=== PATIENT | male | born 1960 | race African-American/Black ===

== ENCOUNTER 2016-08-31 10:00 | Inpatient (IN) | payer OTHER ==
--- NOTE | ~2016-08-31 | HP ---
Unit #: [id number] #: [id number] Patient: HILL HERNANDEZ [id number] [place] [address] [id number] I MR#: [id number] NAME: HILL HERNANDEZ ROOM: P212 Age: 56 Sex: M Admission Date: 08/31/2016 : 1960 Attending Physician: Wei Mcfadden M.D. Admitting Physician: Wei Mcfadden M.D. Primary Care Physician: Generic Doctor Not In System HISTORY AND PHYSICAL HISTORY OF PRESENT ILLNESS Hill is a 56 year old admitted to [address] [place] [address] because of his polysubstance abuse which includes alcohol and cocaine. PAST MEDICAL HISTORY 1. History of alcohol abuse. 2. History of illicit substance abuse to include cocaine. PAST SURGICAL HISTORY Nothing reported. ALLERGIES No known drug allergies. SOCIAL HISTORY He does not smoke. Drinks a gallon of liquor plus 12 beers on a daily basis. Admits to using cocaine frequently. FAMILY HISTORY Medically noncontributory. REVIEW OF SYSTEMS CONSTITUTIONAL: No fever or chills. HEENT: Denies any sore throat, ear pain or runny nose. CARDIOVASCULAR: Denies chest pain, irregular heart rhythm or palpitations. CHEST: Denies shortness of breath or cough. No hemoptysis. GASTROINTESTINAL: Denies nausea, vomiting, diarrhea or chronic constipation. ENDOCRINE: Denies history of increased thirst or urination. No recent significant weight loss or gain. GENITOURINARY: Denies dysuria, frequency, or hematuria. SKIN: Denies any rashes. HEMATOLOGIC: Denies history of increased bleeding or bruising. MUSCULOSKELETAL: Denies any hot, swollen joints. No generalized muscle pain. NEUROLOGIC: Denies problems with vision or speech. No frequent, severe headaches. No numbness, tingling or weakness in any extremities. Denies loss of bladder or bowel control. CURRENT MEDICATIONS Detox protocol. PHYSICAL EXAMINATION Unit #: [id number] #: [id number] Patient: HILL HERNANDEZ GENERAL: Alert, well-nourished, in no apparent distress. VITAL SIGNS: Blood pressure 116/74, heart rate 98, respirations 16, temperature 98.6. WEIGHT: 243. HEIGHT: 5 feet 9 inches. SKIN: Warm and dry without rash or lesion. HEENT: Normocephalic. TMs not viewed. Oral and nasal passages clear. Conjunctivae clear. PERRLA. EOMs intact. NECK: Supple without lymphadenopathy or thyromegaly. HEART: Regular rate and rhythm without murmur. LUNGS: Clear. ABDOMEN: Soft, nontender. : Not done. EXTREMITIES: No evidence of cyanosis, clubbing or edema. Moves all without focal deficit. NEUROLOGICAL: Grossly within normal limits. Cranial Nerves: II: Visual rey are intact. III, IV AND : Extraocular movements are intact. Pupils are equal, round and reactive to light. V: Facial sensation is grossly normal. VII: Facial movements and expression are normal. VIII: Auditory acuity grossly intact. IX, X: Uvula is midline. Phonation is normal. XI: Patient shrugs shoulders and turns head normally. XII: Tongue protrudes in the midline. Sensory and Motor Function: Sensory and motor sensation is grossly normal. Motor: moves all extremities well. Coordination: Gait is normal. Deep Tendon Reflexes: Intact. IMPRESSION Psychiatric admission. RECOMMENDATIONS PSYCHIATRIC: Per psychiatrist. MEDICAL: See no contraindication to participate in facility's activities. MEDICAL PROGNOSIS Good. MEDICAL CONDITION Stable. Dictated by... Camila Mae P.A.-C. for Radha Abraham/trip TD: 08/31/2016 19:57 JOB #: [id number] Unit #: [id number] #: [id number] Patient: HILL HERNANDEZ HISTORY AND PHYSICAL Page 1 of 1 X Camila Mae HISTORY AND PHYSICAL
--- NOTE | ~2016-08-31 | PA ---
Unit #: [id number] #: [id number] Patient: SHARRON HERNANDEZ [id number] [facility] [address] [place] [address] [id number] I MR#: [id number] NAME: SHARRON HERNANDEZ ROOM: P212 Age: 56 Sex: M Admission Date: 08/31/2016 : 1960 Date of Assessment: Attending Physician: Wei Mcfadden M.D. Admitting Physician: Wei Mcfadden M.D. Primary Care Physician: Reynold Doctor Not In System PSYCHIATRIC ASSESSMENT DATE OF SERVICE 08/31/2016. IDENTIFYING DATA Mr. Hernandez is a 56-year-old single male, who is a resident of [place], [place], and was self-referred to the hospital on voluntary basis. CHIEF COMPLAINT "I'm here for detox." HISTORY OF PRESENT ILLNESS Mr. Hernandez is a 56-year-old male, who was self-referred to the hospital. Upon presentation, stated that he is here for detox. "I am having withdrawals, now I drink alcohol and use cocaine, I feel like stuff is crawling on me." He reports significant withdrawal symptoms with depression, anxiety, irritability, restlessness, but denies any suicidal ideations, intent, or plan and as such, recommendation for inpatient level of care was made. The patient was transferred to us. SUBSTANCE ABUSE HISTORY The patient reports history of alcohol dependence and has been drinking a gallon and 12 beers a day on his own account and reports that he has been using cocaine once a week. He reports alcohol to be his drug of choice. PAST PSYCHIATRIC HISTORY The patient has not had any prior inpatient or outpatient psychiatric treatment. Review of the medical records indicated that currently he is not active in treatment program, is not seeing a psychiatrist, and not taking any psychotropic medications. PAST MEDICAL HISTORY No acute or chronic medical illnesses. ALLERGIES No known medication allergies. CURRENT MEDICATIONS None. PERSONAL AND SOCIAL HISTORY A 56-year-old male, who reports that he is single, unemployed, and essentially homeless and has poor social support system. Unit #: [id number] #: [id number] Patient: SHARRON HERNANDEZ MENTAL STATUS EXAMINATION A middle-aged male, who was casually dressed with fair personal hygiene, appears to be in no acute distress or discomfort. He was awake and alert on interaction with intact orientation to time, place, and person. His mood was anxious and depressed with a congruent affect. His speech was slow and restricted in content. He denies any suicidal or homicidal ideations and also denies any auditory or visual hallucinations. His insight and judgment remain significantly impaired. DIAGNOSTIC IMPRESSION Psychiatric: Alcohol dependence, moderate, in acute withdrawals; cocaine abuse, moderate. Medical: None. Stressors: Moderate psychosocial stressors. TREATMENT PLAN 1. The patient has presented with history of mood disorder and substance abuse. We will need inpatient hospitalization for safety and stabilization. We will start him back on his home medications. We will adjust the medications and monitor response. 2. Supportive therapy was provided to the patient. ESTIMATED LENGTH OF STAY 5 to 7 days. ABILITY TO HELP SELF Limited. WILLINGNESS TO HELP SELF The patient appears to be willing to help self. STRENGTHS 1. Communicative. 2. Cooperative. PROBLEMS 1. Chronic dysphoric symptoms. 2. Chronic chemical dependency. 3. Poor social support system. DISCHARGE CRITERIA This will be contingent upon the patient's ability to show resolution of his depression and anxiety and his ability to stay safe to himself, particularly after discharge from the hospital. Dictated by... Radha Cordova/whitney TD: 09/04/2016 07:19 JOB #: [id number] Unit #: [id number] #: [id number] Patient: SHARRON HERNANDEZ PSYCHIATRIC ASSESSMENT Page 1 of 1 X Mi Barajas MD X PSYCHIATRIC ASSESSMENT
--- NOTE | ~2016-08-31 | PN ---
Unit #: [id number] #: [id number] Patient: SHARRON HERNANDEZ [id number] [facility] [address] [place] [address] [id number] I MR#: [id number] NAME: SHARRON HERNANDEZ ROOM: P212 Age: 56 Sex: M Admission Date: 08/31/2016 : 1960 Attending Physician: Wei Mcfadden M.D. Admitting Physician: Wei Mcfadden M.D. Primary Care Physician: Generic Doctor Not In System [facility] PROGRESS NOTES DATE 09/02/2016 DISCUSSION Mr. Hernandez is a 56-year-old white male who was seen today in cross coverage for Dr. Mcfadden and chart was reviewed and case was discussed with the staff. He has been anxious, withdrawn though has not shown any agitation, irritability and has been cooperative with treatment recommendations and has been taking medications and tolerating them fairly well with no reported side effects. MENTAL STATUS EXAMINATION Middle-aged white male who was casually dressed with fair personal hygiene and appears to be in no acute distress or discomfort. He was awake and alert with intact orientation. His mood was anxious with congruent affect. He denies any suicidal or homicidal ideations. His insight and judgement remains slightly impaired. TREATMENT PLAN Will continue on his current treatment protocol. Will monitor response to medications and make further adjustments as needed. Dictated by... Radha Cordova/trip TD: 09/02/2016 22:17 JOB #: [id number] [facility] PROGRESS NOTES Page 1 of 1 X Mi Barajas MD X PROGRESS NOTE
--- NOTE | ~2016-08-31 | PN ---
Unit #: [id number] #: [id number] Patient: SHARRON HERNANDEZ [id number] [facility] [address] [place] [address] [id number] I MR#: [id number] NAME: SHARRON HERNANDEZ ROOM: P212 Age: 56 Sex: M Admission Date: 08/31/2016 : 1960 Attending Physician: Wei Mcfadden M.D. Admitting Physician: Wei Mcfadden M.D. Primary Care Physician: Generic Doctor Not In System [facility] PROGRESS NOTES DATE 09/03/2016 DISCUSSION Mr. Hernandez is a 56-year-old, white male who was seen today in cross coverage for Dr. Mcfadden and chart was reviewed and case was discussed with the staff. He has been anxious, withdrawn though has not shown any agitation, irritability and has been cooperative with the treatment recommendations. He has been taking the medication and tolerating them fairly well. MENTAL STATUS EXAM Middle-aged white male who was casually dressed with fair personal hygiene, appears to be in no acute distress or discomfort. He was awake and alert with intact orientation. His mood was anxious with congruent affect. He denies any suicidal or homicidal ideation. His insight and judgement remains slightly impaired. TREATMENT PLAN We will continue him on his current treatment protocol. We will monitor his response. Dictated by... Mi Barajas M.D. NILDA/rodrigo TD: 09/05/2016 03:06 JOB #: [id number] [facility] PROGRESS NOTES Page 1 of 1 X Mi Barajas MD X PROGRESS NOTE
--- NOTE | ~2016-08-31 | DS ---
Unit #: [id number] #: [id number] [facility] [id number] [facility] [address] [place] [address] [id number] I MR#: [id number] NAME: SHARRON HERNANDEZ ROOM: P212 Age: 56 Sex: M Admission Date: 08/31/2016 : 1960 Discharge Date: 09/04/2016 Attending Physician: Wei Mcfadden M.D. Primary Care Physician: Generic Doctor Not In System DISCHARGE SUMMARY IDENTIFYING DATA Mr. Hernandez is a 56-year-old, -Romanian male, who is a resident of [place], [place], and was self-referred to the hospital on a voluntary basis. DISCHARGE DIAGNOSES Psychiatric: Alcohol dependence, moderate and acute withdrawals. Alcohol-induced mood disorder. Cocaine abuse, moderate. Medical: Hypertension. Stressors: Moderate psychosocial stressors. HISTORY OF PRESENT ILLNESS Mr. Hernandez is a 56-year-old male, who was self-referred to the hospital. Upon presentation, stated that he is here for detox. "I am having withdrawals, now I drink alcohol and use cocaine, I feel like stuff is crawling on me." He reports significant withdrawal symptoms with depression, anxiety, irritability, restlessness, but denies any suicidal ideations, intent, or plan and as such, recommendation for inpatient level of care was made. The patient was transferred to us. PAST PSYCHIATRIC HISTORY The patient has not had any prior inpatient or outpatient psychiatric treatment. Review of the medical records indicated that currently he is not active in treatment program, is not seeing a psychiatrist, and not taking any psychotropic medications. PAST MEDICAL HISTORY No acute or chronic medical illnesses. HOSPITAL COURSE The patient was admitted to the adult chemical dependency unit at [facility] and was oriented to the hospital environment. Routine p.r.n. medications were initiated, and he was started back on his home medications. Detox protocol was initiated and was closely monitored. He was taking the medications regularly and was tolerating them fairly well and was able to show a decent therapeutic response and was able to come out of the detox without any complications and was willing to continue with treatment on an outpatient basis and as such, it was decided that he will be discharged home. We will continue treatment on an outpatient basis. DISCHARGE MEDICATIONS None. Unit #: [id number] #: [id number] Patient: SHARRON HERNANDEZ DISCHARGE CONDITION Stable. PROGNOSIS Fair. Dictated by... Radha Cordova/whitney TD: 09/04/2016 12:49 JOB #: [id number] DISCHARGE SUMMARY Page 1 of 1 X Mi Barajas MD X DISCHARGE SUMMARY
--- NOTE | ~2016-08-31 | CO ---
Unit #: [id number] #: [id number] Patient: SHARRON HERNANDEZ [id number] [facility] [address] [place] [address] [id number] I MR#: [id number] NAME: SHARRON HERNANDEZ ROOM: [facility] Age: 56 Sex: M Admission Date: 08/31/2016 : 1960 Attending Physician: Wei Mcfadden M.D. Primary Care Physician: Generic Doctor Not In System Requesting Physician: Wei Mcfadden M.D. CONSULTATION REPORT REASON FOR CONSULTATION Patient complains of sore throat. SUBJECTIVE "I don't have a sore throat. I think I have a lymph node swollen in the side of my neck. It is really painful." OBJECTIVE Vital signs within normal limits. No redness, swelling, drainage, tonsillar enlargement, exudate noted to oral pharynx. No lymphadenopathy either anterior or posterior neck. ASSESSMENT Normal exam. PLAN Observation. Dictated by... Laura Logan/rodrigo TD: 09/04/2016 01:52 JOB #: [id number] CONSULTATION REPORT Page 1 of 1 X Miriam Wheeler APR X CONSULTATION REPORT
--- NOTE | ~2016-08-31 | PN ---
Unit #: [id number] #: [id number] Patient: SHARRON HERNANDEZ [id number] [facility] [address] [place] [address] [id number] I MR#: [id number] NAME: SHARRON HERNANDEZ ROOM: P212 Age: 56 Sex: M Admission Date: 08/31/2016 : 1960 Attending Physician: Wei Mcfadden M.D. Admitting Physician: Wei Mcfadden M.D. Primary Care Physician: Generic Doctor Not In System [facility] PROGRESS NOTES DATE OF SERVICE 09/01/2016 DISCUSSION Mr. Hernandez is a 56-year-old white male who was seen today. Chart was reviewed and case was discussed with the staff. He has been anxious, withdrawn, and rather seclusive to himself. Meanwhile, he has been cooperative with the treatment recommendations and has been taking the medications and tolerating them fairly well with no reported side effects. MENTAL STATUS EXAMINATION Middle-aged white male who is casually dressed with fair personal hygiene, appears to be in no acute distress or discomfort. He was awake and alert with intact orientation. His mood is anxious with congruent affect. He denies any suicidal or homicidal ideation. His insight and judgment remain slightly impaired. TREATMENT PLAN 1. We will continue him on his current medications and treatment protocol. We will monitor his response and make further adjustments as needed. 2. We will continue to follow up. Dictated by... Mi Barajas M.D. IAA/bzg TD: 09/02/2016 07:20 JOB #: [id number] [facility] PROGRESS NOTES Page 1 of 1 X Mi Barajas MD PROGRESS NOTE
== END 2016-09-04 12:40 | disposition home or self-care (01) | DRG 897 ==
LOC: P2S 13:02
PROC: HZ2ZZZZ Detoxification Services for Substance Abuse Treatment (ICD-10-PCS; principal; 2016-08-31)
DX: F10.239 Alcohol dependence with withdrawal, unspecified (principal); F14.10 Cocaine abuse, uncomplicated; I10 Essential (primary) hypertension; F10.24 Alcohol dependence with alcohol-induced mood disorder

== ENCOUNTER 2016-10-15 20:50 | Inpatient (IN) | payer OTHER ==
[~2016-10-15] VITALS: Ht 175.3 cm; Wt 72.0 kg
--- NOTE | ~2016-10-15 | CR63 ---
[facility] A Service of [facility] RADIOLOGY TEXT RESULTS PATIENT: SHARRON HERNANDEZ LOCATION: [facility] 324-01 : [birth year] UNIT #: [id number] AGE: [address]: Chinedu Malhotra MD SEX: M ORDER DR: [id number] [facility] [address] [place], [place] [address] [id number] I MR#: [id number] Acc #: [id number] NAME: SHARRON HERNANDEZ : 1960 SEX: M STUDY DATE/TIME: 10/15/2016 21:40 [facility] STUDY DESCRIPTION: CR Chest 2 View Attending Physician: Aissatou Gonzalez M.D. Ordering Physician: Jl Bonner D.O. Primary Care Physician: No Primary Care Physician MEDICAL IMAGING REPORT This report is preliminary unless electronic signature is present EXAM 2-view chest INDICATION Fever for 1 week. Cough and congestion. FINDINGS PA and lateral views of the chest without comparison. Heart and mediastinal contours are normal. There is a right lower lobe pneumonia. No pleural effusion. IMPRESSION Right lower lobe pneumonia. Follow up radiographs are recommended to document resolution and exclude the underlying mass. Dictated by... Erickson Crump M.D. THIS IS AN ELECTRONICALLY VERIFIED REPORT Erickson Crump M.D. at 10/17/2016 10:34 AM KALI/sundar TD: 10/16/2016 08:15 JOB #: [id number] MEDICAL IMAGING REPORT Page 1 of 1 COPY
--- NOTE | ~2016-10-15 | CO ---
Unit #: [id number] #: [id number] Patient: HILL HERNANDEZ [id number] [facility] [address] [place], [place] [address] [id number] I MR#: [id number] NAME: HILL HERNANDEZ ROOM: 324 Age: 56 Sex: M Admission Date: 10/16/2016 : 1960 Attending Physician: Chinedu Malhotra M.D. Primary Care Physician: Primary Care Physician No Consultation Date: 10/17/2016 CONSULTATION REPORT REASON FOR CONSULTATION Followup. DISCUSSION Mr. Hill Hernandez is a 56-year-old male, seen on 10/17/2016 in room 324 bed 1 at [facility]. The patient was compliant and cooperative, mood was sad and dysphoric, flat affect. The patient withdrawn. The patient's vital signs, temperature 102.1, pulse 102, respirations 18, blood pressure 120/70, and oxygen saturation 100%. The patient denied any thoughts of harming self or others, but sad, depressed, withdrawn. REVIEW OF SYSTEMS Complete review of systems unremarkable. MENTAL STATUS EXAMINATION General appearance; the patient dressed casually, seems somewhat confused. Attention span and concentration, poor. Speech, slow in volume. Oriented in place and person. Mood and affect, sad and depressed. Thought process, circumstantial. Thought content, guarded and paranoid, but denied any thoughts of harming self or others. Recent and remote memory, fair to slightly impaired. Language, fair. Fund of knowledge, fair to slightly impaired. Insight and judgment, fair to slightly impaired. DIAGNOSIS Psychiatric: Cocaine use disorder, severe, F14.20. ASSESSMENT AND PLAN Advised to continue with current medication and therapeutic protocol. If needed, consider further adjustment of medication. We will continue to follow and make further adjustment of medication if needed. The patient is currently on Librium 25 mg daily. The patient once medically stable, consider medication for his mood symptom. Please feel free to call if any questions telephone #[phone]. Dictated by... Wei Mcfadden M.D. MISSY/whitney TD: 10/18/2016 08:09 JOB #: [id number] Unit #: [id number] #: [id number] Patient: HILL HERNANDEZ CONSULTATION REPORT Page 1 of 1 X Wei Mcfadden MD CONSULTATION REPORT
--- NOTE | ~2016-10-15 | HP ---
Unit #: [id number] #: [id number] Patient: SHARRON HERNANDEZ [id number] [facility] [address] [place], [place] [address] [id number] I MR#: [id number] NAME: SHARRON HERNANDEZ ROOM: 324 Age: 56 Sex: M Admission Date: 10/16/2016 : 1960 Attending Physician: Aissatou Gonzalez M.D. Primary Care Physician: No Primary Care Physician HISTORY AND PHYSICAL REASON FOR ADMISSION Aspiration pneumonia, fever, alcohol withdrawal. HISTORY OF PRESENT ILLNESS The patient is a 56-year-old -Vietnamese male, known alcoholic who drinks and states this is anywhere from 6 to 12 beers, as well as other alcohol on a daily basis, [facility]. While evaluated there he was noted to have an elevated temperature, as well as nausea and vomiting per his report for the past several days. He was asked to go [facility] for further evaluation. While here he had several emesis episodes. He did undergo a chest x-ray, which showed preliminary findings consistent with aspiration pneumonia. He also was noted to have an elevated temperature and thus decision has been made for further evaluation and/or management. PAST MEDICAL HISTORY Alcohol abuse daily. PAST SURGICAL HISTORY Jaw surgery. HOME MEDICATIONS None. ALLERGIES No known drug allergies. FAMILY HISTORY Reviewed, noncontributory and nonpertinent. SOCIAL HISTORY Positive tobacco use one pack of cigarettes per day. Positive alcohol use, 6-12 beers daily. Patient adamantly denies illicit drug use. He works as cyber security systems engineer. REVIEW OF SYSTEMS Please see HPI. Twelve point otherwise negative except for those positive noted in the HPI. Pertinent positives to include nausea and vomiting, decreased appetite, fevers, body aches, chills, myalgias, arthralgias, joint pains, as well as persistent headaches. PHYSICAL EXAMINATION VITAL SIGNS: Temperature 102.4 rectally, pulse 89, respiratory rate 21, blood pressure 117/79. Unit #: [id number] #: [id number] Patient: SHARRON HERNANDEZ GENERAL APPEARANCE: 56-year-old -Vietnamese male. Mild distress. He appears suddenly anxious and/or agitated. HEENT: Head exam - atraumatic and normocephalic. Ears - tympanic membranes do not reveal any erythema or injection. NECK: Supple. CARDIOVASCULAR: S1 and S2 without murmur. RESPIRATORY: Diminished. GASTROINTESTINAL/ABDOMEN: Nontender and nondistended. LOWER EXTREMITIES: No evidence of any lower extremity edema. No calf tenderness. NEUROLOGIC: Alert and oriented x3. No evidence of any focal nerve deficits. ER COURSE Patient received Tylenol, Zofran, Pepcid. (1) bolus, as well as Rocephin and clindamycin. DIAGNOSTIC STUDIES ER STUDIES/LABS: Lipase at 20, urine tox screen positive for cocaine. Urinalysis negative. BMP shows a potassium of 3.3, creatinine 1.5. Tylenol, alcohol, and salicylates all negative. Lactic acid 1.2. CBC shows a white count of 9.8. Hemoglobin of 14.2. IMAGING STUDIES: Initial chest x-ray reading as per ER report shows right lower lobe infiltrates. INITIAL ADMISSION DIAGNOSES 1. Pneumonia, likely aspiration. 2. Intractable nausea and vomiting likely secondary to acute alcohol withdrawal. 3. Alcohol abuse. 4. Mild renal insufficiency/acute kidney injury. 5. Illicit/substance abuse, cocaine positive on tox screen. 6. Mild hypokalemia. 7. Fever. PLAN Admission telemetry floor. [facility] protocol. IV Zosyn. Banana bag daily p.r.n./symptom management for withdrawals. Initial and schedule Librium. Replete potassium, IV fluids with recheck of a.m. labs in regards to renal insufficiency. Dr. Mcfadden consultation after medical stabilization. Plans have been reviewed with patient in detail. He expresses understanding and agreement. He wishes to be a full code. Dictated by Radha Abraham/phu TD: 10/16/2016 05:56 JOB #: [id number] Unit #: [id number] #: [id number] Patient: SHARRON HERNANDEZ HISTORY AND PHYSICAL Page 1 of 1 X Aissatou Gonzalez MD X HISTORY AND PHYSICAL
--- NOTE | ~2016-10-15 | CO ---
Unit #: [id number] #: [id number] Patient: SHARRON HERNANDEZ [id number] [facility] [address]. [place], [place] [address] [id number] I MR#: [id number] NAME: SHARRON HERNANDEZ ROOM: 324 Age: 56 Sex: M Admission Date: 10/16/2016 : 1960 Attending Physician: Chinedu Malhotra M.D. Primary Care Physician: Primary Care Physician No Consultation Date: 10/17/2016 CONSULTATION REPORT REASON FOR CONSULTATION Upper GI bleed. HISTORY OF PRESENT ILLNESS Mr. Hernandez is a 56-year-old gentleman, who is curled up in bed with a bed sheet over his head and says he is being bugged too much and wants to be left alone. The patient apparently is a heavy drinker, about 6 to 12 beers daily and came to [facility] for detox. Over the years, he was found to have withdrawal symptoms in the form of tachycardia, high temperature along with nausea and vomiting, has therefore been transferred to [facility]. He says he vomited yesterday late night and it was blood. Chest x-ray showed findings consistent with aspiration pneumonia. PAST MEDICAL HISTORY Significant for alcohol abuse. PAST SURGICAL HISTORY He has no previous abdominal surgeries. HOME MEDICATIONS Does not take any. ALLERGIES He has no allergies. FAMILY HISTORY None of colon or pancreatic cancer or liver disease. SOCIAL HISTORY The patient smokes a pack of cigarette a day and also drinks 6 to 12 beers daily. He works as a facility security officer. Does not use any recreational drugs. REVIEW OF SYSTEMS Detailed review of organ systems does not reveal any recent weight loss. There is a history of fever without any chills or rigors. There is a history of cough with expectoration and history of nausea and vomiting. Poor appetite. He also has joint pains and persistent headaches. There is no history of skin rash, aphthous ulcer in mouth, or reactive arthritis. PHYSICAL EXAMINATION GENERAL: He is awake, alert and oriented. VITAL SIGNS: Indicated a temperature of 102.1. He is tachycardic with a heart rate of 100, respiratory rate 20, blood pressure is 130/83. He Unit #: [id number] #: [id number] Patient: SHARRON HERNANDEZ weighs 154 pounds. HEENT: He has no pallor, icterus, lymphadenopathy or peripheral edema. CARDIOVASCULAR: Normal heart sounds. LUNGS: On auscultation, normal breath sounds. Good air entry. ABDOMEN: Soft and nontender. Liver and spleen are not palpable. Bowel sounds normal. DIAGNOSTIC STUDIES LABORATORY RESULTS: Shows a mild indirect hyperbilirubinemia and normal CBC. In fact, his hemoglobin is 12.4. CLINICAL IMPRESSION The patient with alcohol abuse, history of upper gastrointestinal bleed, most likely from Anupama-Tripp tear. Substantial upper gastrointestinal bleed is less likely in view of stability of hemoglobin. However, diagnostic endoscopy is warranted, will be scheduled for tomorrow. The pros and cons of the procedure and the potential risks and complications were discussed with the patient and he was reassured. Thank you for asking me to see this pleasant gentleman. I appreciate the consult. Dictated by... Radha Parks/whitney TD: 10/18/2016 08:14 JOB #: [id number] CC: Aissatou Gonzalez M.D. CONSULTATION REPORT Page 1 of 1 X Ever Joyner MD CONSULTATION REPORT
--- NOTE | ~2016-10-15 | CO ---
Unit #: [id number] #: [id number] Patient: HILL HERNANDEZ [id number] [facility] [address] [place], [place] [address] [id number] I MR#: [id number] NAME: HILL HERNANDEZ ROOM: 324 Age: 56 Sex: M Admission Date: 10/16/2016 : 1960 Attending Physician: Chinedu Malhotra M.D. Primary Care Physician: Primary Care Physician No Consultation Date: 10/16/2016 CONSULTATION REPORT DISCUSSION Mr. Hill Hernandez is a 56-year-old white male, seen in room 324, bed 1 on 10/16/2016 at [facility]. The patient was admitted on 10/16/2016 with aspiration pneumonia, fever, alcohol withdrawal. The patient reported he was drinking 6 to 12 beers a day. The patient was referred from [facility] for detox. The patient is currently on CIWA protocol, seemed somewhat anxious and nervous. Denied any suicidal or homicidal ideation. Denied any psychotic symptom. Still having lot of anxiety. The patient's vital signs; temperature 102.1, pulse 102, respirations 18, blood pressure 128/77, and oxygen saturation 100%. PAST PSYCHIATRIC HISTORY Remarkable for history of previous treatment at [facility] for detox diagnosed with alcohol dependence. The patient was treated at [facility] from 08/31/2016 to 09/04/2016. MEDICAL HISTORY History of pneumonia. CURRENT MEDICATION None. FAMILY HISTORY AND SOCIAL HISTORY The patient has a poor support system. No history of abuse, but history of alcohol abuse and cocaine abuse per history. REVIEW OF SYSTEMS Complete review of systems is unremarkable except as mentioned above. MENTAL STATUS EXAMINATION Vital signs; temperature 102.1, pulse 102, respirations 18, blood pressure 128/77, and oxygen saturation 100%. General appearance; the patient dressed casually, lying comfortably in bed, seemed somewhat anxious and nervous. Speech, regular rate. Oriented in time, place, and person. Mood and affect, labile and somewhat guarded. Thought process, coherent. Thought content, the patient denied any thoughts of harming self or others, but guarded, withdrawn, paranoid. Recent and remote memory, fair. Language, intact. Fund of knowledge, fair. Insight and judgment, fair to slightly impaired. DIAGNOSES Psychiatric: Alcohol use disorder, severe, F10.20; cocaine use disorder, severe, F14.20; mood disorder, not otherwise specified, F32.9. Unit #: [id number] #: [id number] Patient: HILL HERNANDEZ Secondary diagnosis: Deferred. Medical diagnosis: Please refer to H and P. Stressors: Psychosocial stressors. ASSESSMENT/PLAN 1. Supportive psychotherapy and psychoeducation provided to the patient. 2. Educated about benefits and side effects of medication and course and prognosis of illness. 3. Advised to continue with detox protocol and detox monitoring. If needed, consider further adjustment of medication. We will continue to follow. Please feel free to call if any questions, telephone #[phone]. Dictated by... Radha Meléndez/whitney TD: 10/18/2016 08:59 JOB #: [id number] CONSULTATION REPORT Page 1 of 1 X Wei Mcfadden MD X CONSULTATION REPORT
--- NOTE | ~2016-10-15 | CT4 ---
[facility] A Service of [facility] RADIOLOGY TEXT RESULTS PATIENT: SHARRON HERNANDEZ LOCATION: [facility] 324-01 : [birth year] UNIT #: [id number] AGE: [address]: Chinedu Malhotra MD SEX: M ORDER DR: [id number] [facility] [address]. [place], [place] [address] [id number] I MR#: [id number] Acc #: [id number] NAME: SHARRON HERNANDEZ : 1960 SEX: M STUDY DATE/TIME: 10/16/2016 00:09 [facility] ROOM: 324 STUDY DESCRIPTION: CT Abd and Pelv Wo Cont Attending Physician: Chniedu Malhotra M.D. Ordering Physician: Jl Bonner D.O. Primary Care Physician: Primary Care Physician No MEDICAL IMAGING REPORT This report is preliminary unless electronic signature is present EXAM Abdomen and pelvis CT 10/16/2016 0009 hours INDICATION Shortness of air, fever. Abdominal pain and nausea with no appetite for 1 week. History of cocaine and alcohol abuse. TECHNIQUE Axial noncontrast images were obtained through the abdomen and pelvis. Multiplanar reformats were obtained. This CT examination was performed with one or more of the following radiation dose reduction techniques: automatic exposure control, adjustment of mA and/or kV according to patient size, and iterative reconstruction. No comparison. FINDINGS ABDOMEN: There is pneumonia in the right lower lobe. Gallbladder is unremarkable. No renal or ureteral stones. No hydronephrosis. Unenhanced solid organs are grossly normal. Unopacified GI tract grossly normal. No free fluid is seen. PELVIS: The appendix is normal. The remainder of the unopacified GI tract is normal as well. Urinary bladder is normal. There are no lower ureteral stones. There is degenerative disc disease at L5-S1. IMPRESSION 1. Right lower lobe pneumonia. 2. Lower lumbar degenerative disease. 3. Otherwise normal noncontrast abdomen and pelvis CT. Dictated by... [facility] of [facility] RADIOLOGY TEXT RESULTS PATIENT: SHARRON HERNANDEZ LOCATION: [facility] 324-01 : [birth year] UNIT #: [id number] AGE: [address]: Chinedu Malhotra MD SEX: M ORDER DR: Rickie Abrams Jr., M.D. THIS IS AN ELECTRONICALLY VERIFIED REPORT Rickie Abrams Jr., M.D. at 10/17/2016 5:51 AM ALEX/kuldip TD: 10/16/2016 10:01 JOB #: [id number] MEDICAL IMAGING REPORT Page 1 of 1 COPY
--- NOTE | ~2016-10-15 | CO ---
Unit #: [id number] #: [id number] Patient: HILL HERNANDEZ [id number] [address] [address] [id number] I MR#: [id number] NAME: HILL HERNANDEZ ROOM: 324 Age: 56 Sex: M Admission Date: 10/16/2016 : 1960 Attending Physician: Chinedu Malhotra M.D. Primary Care Physician: No Primary Care Physician Consultation Date: 10/18/2016 CONSULTATION REPORT REASON FOR CONSULTATION Followup. DISCUSSION Mr. Hill Hernandez is a 56-year-old male seen in room 324 bed-1 on 10/18/[address] [facility]. Patient has a history of alcohol abuse, cocaine abuse, depression. Patient reported making progress. Denied any suicidal or homicidal ideation. Denied any psychotic symptoms. Dressed casually, lying comfortably in bed. Vital signs - 103.1, 95, 18, 138/83. Oxygen saturation 100%. Patient seems somewhat anxious, nervous. REVIEW OF SYSTEMS Unremarkable. MENTAL STATUS EXAMINATION GENERAL APPEARANCE: Patient dressed casually, lying comfortably in bed. Seems somewhat anxious. Attention span and concentration fair. Speech is regular rate. Oriented in time, place and person. Mood and affect sad, dysphoric. Thought process coherent. Thought content - patient denied any thoughts of harming self or others. Denied any hallucination. Recent and remote memory poor. Insight and judgment poor. DIAGNOSES 1. Cocaine use disorder, severe - F14.20. 2. Cannabis abuse disorder, moderate - F12.20. 3. Mood disorder, NOS - F32.9. ASSESSMENT/PLAN 1. Supportive psychotherapy and psychoeducation provided to patient. 2. Educated about benefits and side effects of medication and course and prognosis of illness. 3. Advised to continue with current combination of medication and make further adjustment of medication if needed. Please feel free to call if any questions. Telephone number [phone]. Dictated by... Radha Meléndez/sundar Unit #: [id number] #: [id number] Patient: HILL HERNANDEZ TD: 10/19/2016 08:36 JOB #: [id number] CONSULTATION REPORT Page 1 of 1 X Wei Mcfadden MD CONSULTATION REPORT
[2016-10-15 21:35] LABS: BASOPHIL% 0.4 % (0-2.5); HEMATOCRIT 42.5 % (38.0-50.0); HEMOGLOBIN 14.2 gm/dL (13.0-16.0); LYMPHOCYTE# 1.1 X10e3 (1.0-3.5); LYMPHOCYTE% 11.6 % (17.0-45.0); MEAN CELL VOLUME 92.1 FL (83-96); MEAN CORPUSCULAR HEMOGLOBIN 30.9 PG (28-34); MEAN CORPUSCULAR HGB CONC 33.5 g/dL (30-36); MEAN PLATELET VOLUME 7.4 FL (6.5-11.5); MONOCYTE# 0.9 X10e3 (0-1.0); MONOCYTE% 9.7 % (3.0-12.0); NEUTROPHIL# 7.6 X10e3 (1.5-7.1); NEUTROPHIL% 78.3 % (40-75); PLATELET COUNT 189 X10e3 (140-420); RED BLOOD COUNT 4.61 X10e (3.90-5.60); RED CELL DISTRIBUTION WIDTH 14.1 % (11.0-15.5); WHITE BLOOD COUNT 9.8 X10e3 (4.0-10.5)
[2016-10-15 21:40] LABS: DIFF IND NO
[2016-10-15 22:06] LABS: ALBUMIN SERUM 4.4 g/dL (3.5-5.0); ALKALINE PHOSPHATASE 42 U/L (32-92); ALT (SGPT) 22 U/L (10-40); AST (SGOT) 39 U/L (10-42); BILIRUBIN, DIRECT 0.2 mg/dL (0.0-0.2); BILIRUBIN,INDIRECT 1.1 mg/dL (0.0-0.9); BILIRUBIN,TOTAL 1.3 mg/dL (0.2-2.0); BLOOD UREA NITROGEN 17 mg/dL (9-23); BUN/CREATININE RATIO 11.33; CARBON DIOXIDE 24 mmol/L (22-31); CHLORIDE 100 mmol/L (100-111); CREATININE SERUM 1.5 mg/dL (0.6-1.4); GLOM FILT RATE Estimated 59.9 mL/min (>60); GLUCOSE FASTING 107 mg/dL (70-110); POTASSIUM 3.3 mmol/L (3.5-5.1); PROTEIN TOTAL SERUM 8.1 g/dL (6.0-8.3); SALICYLATE <4.0 mg/dL; SODIUM 134 mmol/L (135-145)
[2016-10-15 22:06] LABS: URINE SOURCE CLEAN CATCH
[2016-10-15 22:07] LABS: ACETAMINOPHEN <10 ug/mL; ALCOHOL BLOOD <5 mg/dL (0)
[2016-10-15 22:09] LABS: URINE APPEARANCE CLEAR; URINE BILIRUBIN NEG (NEG); URINE BLOOD TRACE (NEG); URINE COLOR YELLOW; URINE GLUCOSE NEG (NEG); URINE KETONE NEG (NEG); URINE LEUKOCYTE ESTERASE NEG (NEG); URINE NITRATE NEG (NEG); URINE PH 5.5 (5-8); URINE PROTEIN NEG (NEG); URINE SPECIFIC GRAVITY 1.009 (1.003-1.035); URINE UROBILINOGEN 0.2 MG/DL (NEG)
[2016-10-15 22:12] LABS: URBCS1 AUWI 0-2 /[HPF] (0-2); URINE BACTERIA AUWI NEG (NEGATIVE); URINE SQUAMOUS EPITHELIAL CELL NONE SEEN /[HPF]; UWBCS1 AUWI 0-2 (0-5)
[2016-10-15 22:17] LABS: CULTURE INDICATED? NO
[2016-10-15 22:18] LABS: AMPHETAMINE NEG (NEG); BARBITURATES NEG (NEG); BENZODIAZEPINES NEG (NEG); COCAINE POS (NEG); MARIJUANA NEG (NEG); OPIATES NEG (NEG); TRICYCLIC ANTIDEPRESSANTS NEG (NEG); U METHADONE NEG (NEG)
[2016-10-16 03:45] LABS: BASOPHIL% 0.4 % (0-2.5); EOSINOPHIL% 0.1 % (0.0-7.0); HEMATOCRIT 38.9 % (38.0-50.0); HEMOGLOBIN 12.9 gm/dL (13.0-16.0); LYMPHOCYTE# 0.6 X10e3 (1.0-3.5); LYMPHOCYTE% 5.9 % (17.0-45.0); MEAN CELL VOLUME 92.3 FL (83-96); MEAN CORPUSCULAR HEMOGLOBIN 30.7 PG (28-34); MEAN CORPUSCULAR HGB CONC 33.2 g/dL (30-36); MEAN PLATELET VOLUME 7.5 FL (6.5-11.5); MONOCYTE# 0.9 X10e3 (0-1.0); MONOCYTE% 9.7 % (3.0-12.0); NEUTROPHIL# 8.1 X10e3 (1.5-7.1); NEUTROPHIL% 83.9 % (40-75); PLATELET COUNT 174 X10e3 (140-420); RED BLOOD COUNT 4.21 X10e (3.90-5.60); RED CELL DISTRIBUTION WIDTH 13.9 % (11.0-15.5); WHITE BLOOD COUNT 9.6 X10e3 (4.0-10.5)
[2016-10-16 03:46] LABS: DIFF IND NO
[2016-10-16 03:58] LABS: INR 1.1; PROTHROMBIN TIME (PATIENT) 11.4 SECONDS (10.0-11.7)
[2016-10-16 04:08] LABS: BUN/CREATININE RATIO 13.63; CALCIUM SERUM 8.3 mg/dL (8.4-10.2); CREATININE SERUM 1.1 mg/dL (0.6-1.4); GLOM FILT RATE Estimated 87.1 mL/min (>60); MAGNESIUM 2.2 mg/dL (1.6-3.0); POTASSIUM 3.8 mmol/L (3.5-5.1)
[2016-10-17 04:59] LABS: HEMATOCRIT 36.1 % (38.0-50.0); HEMOGLOBIN 12.4 gm/dL (13.0-16.0); MEAN CELL VOLUME 90.8 FL (83-96); MEAN CORPUSCULAR HEMOGLOBIN 31.1 PG (28-34); MEAN CORPUSCULAR HGB CONC 34.3 g/dL (30-36); MEAN PLATELET VOLUME 7.4 FL (6.5-11.5); RED BLOOD COUNT 3.98 X10e (3.90-5.60); RED CELL DISTRIBUTION WIDTH 14.1 % (11.0-15.5); WHITE BLOOD COUNT 6.7 X10e3 (4.0-10.5)
[2016-10-17 06:17] LABS: BUN/CREATININE RATIO 7.5; CALCIUM SERUM 7.8 mg/dL (8.4-10.2); CREATININE SERUM 1.2 mg/dL (0.6-1.4); GLOM FILT RATE Estimated 78.4 mL/min (>60); MAGNESIUM 2.1 mg/dL (1.6-3.0); POTASSIUM 3.8 mmol/L (3.5-5.1)
[2016-10-17 17:31] LABS: %MB 0.3 % (0.0-4.0); MB 1.1 ng/ml
[2016-10-18 05:50] LABS: POTASSIUM 3.8 mmol/L (3.5-5.1)
== END 2016-10-18 12:48 | disposition home or self-care (01) | DRG 177 ==
LOC: CED 20:50 → CEDOF 10-16 01:00 → CED 10-16 01:06 → CEDOF 10-16 02:44 → C3A PCU 10-16 02:44
PROVIDERS: Emergency Medicine; Family Medicine; Internal Medicine
DX: J69.0 Pneumonitis due to inhalation of food and vomit (principal); K22.6 Gastro-esophageal laceration-hemorrhage syndrome; F10.230 Alcohol dependence with withdrawal, uncomplicated; F14.20 Cocaine dependence, uncomplicated; Y90.0 Blood alcohol level of less than 20 mg/100 ml; N18.9 Chronic kidney disease, unspecified; E87.6 Hypokalemia; F39 Unspecified mood [affective] disorder; F17.210 Nicotine dependence, cigarettes, uncomplicated; F12.20 Cannabis dependence, uncomplicated
CPT/HCPCS: 36415; 71020; 74176; 80048; 80076; 80307; 81003; 82308; 82550; 82553; 82607; 83605; 83690; 83735; 84132; 84439; 84443; 84484; 85025; 85027; 85610; 86592; 87040; 94760; 96361; 96365; 96375; 99285; C9113; G0480; J0696; J1956; J2405; J2543; J3370; J3411; J3420; J7042

== ENCOUNTER 2016-10-19 07:00 | Inpatient (IN) | payer OTHER ==
[~2016-10-19] VITALS: Ht 175.3 cm; Wt 70.3 kg
--- NOTE | ~2016-10-19 | HP ---
Unit #: [id number] #: [id number] Patient: SHARRON HERNANDEZ [id number] [facility] [address] [place] [address] [id number] I MR#: [id number] NAME: SHARRON HERNANDEZ ROOM: P171 Age: 56 Sex: M Admission Date: 10/19/2016 : 1960 Attending Physician: Wei Mcfadden M.D. Admitting Physician: Wei Mcfadden M.D. Primary Care Physician: Primary Care Physician No HISTORY AND PHYSICAL HISTORY OF PRESENT ILLNESS The patient is a 56-year-old male, who has been admitted to [facility] for detox from alcohol. PAST MEDICAL HISTORY Alcoholism. PAST SURGICAL HISTORY Jaw history. ALLERGIES No known drug allergies. HOME MEDICATIONS None. SOCIAL HISTORY Alcohol and tobacco abuse. FAMILY HISTORY Medically noncontributory. REVIEW OF SYSTEMS CONSTITUTIONAL: Denies fever but endorses chills. HEENT: Denies sore throat, ear pain or runny nose. CARDIOVASCULAR: Denies chest pain, irregular heart rhythm or palpitations. CHEST: Denies shortness of breath or cough. No hemoptysis. GASTROINTESTINAL: Denies nausea, vomiting, diarrhea or chronic constipation. ENDOCRINE: Denies history of increased thirst or urination. No recent significant weight loss or gain. GENITOURINARY: Denies dysuria, frequency, or hematuria. SKIN: Denies any rashes. HEMATOLOGIC: Denies increased bleeding or bruising. MUSCULOSKELETAL: Denies any hot, swollen joints. No generalized muscle pain. NEUROLOGIC: Denies problems with vision or speech. No frequent, severe headaches. No numbness, tingling or weakness in any extremities. Denies loss of bladder or bowel control. PHYSICAL EXAMINATION GENERAL APPEARANCE: The patient is awake, alert, and in no acute distress. Unit #: [id number] #: [id number] Patient: SHARRON HERNANDEZ VITAL SIGNS: His vital signs are, temperature 97.7, heart rate 52, respirations 20, and blood pressure 86/54. HEENT: Head: Atraumatic and normocephalic. Pupils are equal, round, and reactive. Extraocular movements are intact. No discharge from ears or nares. NECK: Supple. Trachea is midline. HEART: Regular rate and rhythm. LUNGS: Diminished. ABDOMEN: Soft, nontender, and nondistended. : Not done. SKIN: Warm, dry, and no unusual rashes or lesions. EXTREMITIES: No clubbing, edema, or cyanosis. NEUROLOGIC: Cranial Nerves: II through XII: Intact. No focal deficits. Sensory and Motor Function: Grossly normal. Motor: Moves all extremities well. Coordination: Gait is normal. Deep Tendon Reflexes: Intact. IMPRESSION Psychiatric admission. RECOMMENDATIONS Psychiatric, will be per psychiatry. MEDICAL I see no contraindications to participating in facility's activities. MEDICAL PROGNOSIS Fair. MEDICAL CONDITION Stable. Dictated by... Yadira Malhotra A.P.R.N. for Aissatou Gonzalez M.D. AM/zack TD: 10/19/2016 11:38 JOB #: [id number] HISTORY AND PHYSICAL Page 1 of 1 X Yadira Malhotra APRN X HISTORY AND PHYSICAL
--- NOTE | ~2016-10-19 | CO ---
Unit #: [id number] #: [id number] Patient: SHARRON HERNANDEZ [id number] [facility] [address] [place] [address] [id number] I MR#: [id number] NAME: SHARRON HERNANDEZ ROOM: 71 Age: 56 Sex: M Admission Date: 10/19/2016 : 1960 Attending Physician: Wei Mcfadden M.D. Primary Care Physician: Primary Care Physician No Consultation Date: 10/21/2016 CONSULTATION REPORT Ordering provider is Dr. Mcfadden. REASON FOR CONSULT Pneumonia. SUBJECTIVE The patient reports that several days ago, he went to [place] for fever and cough. He was diagnosed with pneumonia and started on IV antibiotic. He was transferred to [facility] claud[facility]eral[facility] and was seen on by another nurse-practitioner and started on oral azithromycin. Today, the patient feels that he is doing better. His cough is getting better and he is able to cough up mucus. He is less short of breath than he was, but still complains of mild wheezing. OBJECTIVE His vital signs are stable. He is afebrile. His lungs have crackles in the bases. He is in no acute distress. The rest of his examination was unremarkable. ASSESSMENT Pneumonia. PLAN Plan is to continue on the azithromycin and adding some cough medicine for relief of cough. Dictated by... Laura Alvarado/whitney TD: 10/22/2016 08:45 JOB #: [id number] Unit #: [id number] #: [id number] Patient: SHARRON HERNANDEZ CONSULTATION REPORT Page 1 of 1 X JAYDEN LANDRY APRN CONSULTATION REPORT
--- NOTE | ~2016-10-19 | CO ---
Unit #: [id number] #: [id number] Patient: SHARRON HERNANDEZ [id number] [facility] [address] [place] [address] [id number] I MR#: [id number] NAME: SHARRON HERNANDEZ ROOM: [facility] Age: 56 Sex: M Admission Date: 10/19/2016 : 1960 Attending Physician: Wei Mcfadden M.D. Primary Care Physician: Primary Care Physician No Consultation Date: 10/19/2006 CONSULTATION REPORT REASON FOR CONSULTATION Pneumonia. SUBJECTIVE The patient states that he was seen in the hospital and diagnosed with pneumonia. He endorses some fever and chills. He denies any productive cough, nausea, vomiting, or diarrhea. OBJECTIVE GENERAL: The patient is awake and alert, in no acute distress. VITAL SIGNS: Temperature 97.7, heart rate 52, respirations 20, blood pressure 86/54. He is oxygenating 100%. LUNGS: Diminished on the right. CARDIOVASCULAR: S1, S2. Regular rate and rhythm. ABDOMEN: Soft, nontender, and nondistended. Bowel sounds are positive in all 4 quadrants. SKIN: Appears to be warm, dry, intact in the rest of the region. NEUROLOGIC: Within normal limits. DIAGNOSTIC STUDIES IMAGING STUDIES: CT scan from [facility] shows findings concerning for right lower lobe pneumonia. ASSESSMENT Right lower lobe pneumonia. PLAN At this time, we will encourage the patient to drink plenty of fluids. We will start the patient on azithromycin 500 mg p.o. x1 today and then 250 mg p.o. daily x4 days. Dictated by... Yadira Malhotra A.P.R.N. for Aissatou Gonzalez M.D. AM/whitney TD: 10/19/2016 20:10 JOB #: [id number] Unit #: [id number] #: [id number] Patient: SHARRON HERNANDEZ CONSULTATION REPORT Page 1 of 1 X Yadira Malhotra MANUFACTURING ASSOCIATE X CONSULTATION REPORT
--- NOTE | ~2016-10-19 | DS ---
Unit #: [id number] #: [id number] Patient: SHARRON HERNANDEZ [id number] [facility] [address] [place] [address] [id number] I MR#: [id number] NAME: SHARRON HERNANDEZ ROOM: [facility] Age: 56 Sex: M Admission Date: 10/19/2016 : 1960 Discharge Date: 10/23/2016 Attending Physician: Wei Mcfadden M.D. Primary Care Physician: Primary Care Physician No DISCHARGE SUMMARY REASON FOR ADMISSION Detox. DIAGNOSTIC STUDIES LABORATORY RESULTS: Urine drug screen positive for benzodiazepine. HOSPITAL COURSE The patient was admitted to inpatient unit on 10/19/2016 and discharged on 10/23/2016. The patient was treated on the inpatient unit with group therapy, individual therapy, and medication management. The patient was responsive to treatment. Subsequently, the patient was discharged with a plan to follow up in outpatient program. DISCHARGE MEDICATIONS The patient to continue with Zithromax 250 mg once daily for the next 4 days for upper respiratory tract infection. DISCHARGE DIAGNOSES Psychiatric: Alcohol use disorder, severe, F10.20; cocaine use disorder, severe, F14.20; and mood disorder, not otherwise specified, F32.9 Secondary diagnosis: Deferred. Medical diagnoses: Rule out pneumonia, chest infection. Stressors: Psychosocial stressors. DISCHARGE INSTRUCTIONS The patient to follow up in outpatient clinic as per social media editor. CONDITION ON DISCHARGE The patient was pleasant and cooperative. Denied any psychotic symptom or any suicidal ideation. PROGNOSIS Guarded. DIET AND ACTIVITY As tolerated. Dictated by... Wei Mcfadden M.D. Unit #: [id number] #: [id number] Patient: SHARRON HERNANDEZ SZC/modl TD: 10/23/2016 13:41 JOB #: [id number] DISCHARGE SUMMARY Page 1 of 1 X Wei Mcfadden MD X DISCHARGE SUMMARY
--- NOTE | ~2016-10-19 | PN ---
Unit #: [id number] #: [id number] Patient: HILL HERNANDEZ [id number] [facility] [address] [place] [address] [id number] I MR#: [id number] NAME: HILL HERNANDEZ ROOM: 71 Age: 56 Sex: M Admission Date: 10/19/2016 : 1960 Attending Physician: Wei Mcfadden M.D. Admitting Physician: Wei Mcfadden M.D. Primary Care Physician: Primary Care Physician Petra ALLEN NOTES DATE OF SERVICE 10/20/2016 DISCUSSION Mr. Hill Hernandez is a 56-year-old male seen on 10/20/2016. Patient interviewed, chart reviewed. Obtained information from nursing staff. Patient sad, dysphoric, anxious, withdrawn. Patient's vital signs 99.9, 94, 18, 193/63. Patient reported pain in back from pneumonia, currently on Zithromax. Withdrawn, isolative, flat, isolative. Complete review of systems unremarkable. MENTAL STATUS EXAMINATION General appearance, patient dressed casually. Attention span and concentration fair. Oriented to place and person. Mood and affect labile. Speech monotone. Thought process concrete. Recent and remote memory poor. Insight and judgement poor. DIAGNOSES 1. Cocaine use disorder, severe. 2. Cannabis abuse moderate. 3. Mood disorder NOS. ASSESSMENT/PLAN Advise to continue with current medication and therapeutic protocol. If needed consider further adjustment of medication. Dictated by... Radha Meléndez/rodrigo TD: 10/23/2016 03:49 JOB #: [id number] Unit #: [id number] #: [id number] Patient: HILL HERNANDEZ PEADEBBIE PROGRESS NOTES Page 1 of 1 X Wei Mcfadden MD X PROGRESS NOTE
--- NOTE | ~2016-10-19 | PN ---
Unit #: [id number] #: [id number] Patient: SHARRON HERNANDEZ [id number] [facility] [address] [place] [address] [id number] I MR#: [id number] NAME: SHARRON HERNANDEZ ROOM: 71 Age: 56 Sex: M Admission Date: 10/19/2016 : 1960 Attending Physician: Wei Mcfadden M.D. Admitting Physician: Wei Mcfadden M.D. Primary Care Physician: Primary Care Physician Petra ALLEN NOTES DATE OF SERVICE 10/21/2016 DISCUSSION Mr. Alejandre is a 56-year-old male seen on 10/21/2016. Patient interviewed, chart reviewed. Obtained information from nursing staff. Patient was compliant and cooperative. Mood sad, dysphoric. Patient reports that he needed a double portion Ensure and wanted to see the medical doctor because of pneumonia. Vital signs 98.4, 78, 99/73. Complete review of systems unremarkable. MENTAL STATUS EXAMINATION General appearance, patient dressed casually. Attention span and concentration fair. Oriented to time, place and person. Mood and affect labile. Speech monotone. Thought process concrete. Patient denied any thoughts of harming self or others. Recent and remote memory poor. Insight and judgement poor. DIAGNOSES 1. Alcohol use disorder severe. 2. Cocaine use disorder severe. 3. Mood disorder NOS. ASSESSMENT/PLAN Advise to continue with current medication and therapeutic protocol. If needed consider further adjustment of medication. Dictated by... Radha Meléndez/rodrigo TD: 10/24/2016 00:41 JOB #: [id number] Unit #: [id number] #: [id number] Patient: SHARRON HERNANDEZ PROGRESS NOTES Page 1 of 1 X Wei Mcfadden MD PROGRESS NOTE
--- NOTE | ~2016-10-19 | PA ---
Unit #: [id number] #: [id number] Patient: SHARORN HERNANDEZ [id number] [facility] [address] [place] [address] [id number] I MR#: [id number] NAME: SHARRON HERNANDEZ ROOM: [facility] Age: 56 Sex: M Admission Date: 10/19/2016 : 1960 Date of Assessment: Attending Physician: Wei Mcfadden M.D. Admitting Physician: Wei Mcfadden M.D. PSYCHIATRIC ASSESSMENT INFORMANTS The patient reliability, fair informant and chart reliability, good. CHIEF COMPLAINT Alcohol abuse and withdrawal. HISTORY OF PRESENT ILLNESS Mr. Alejandre is a 56-year-old male, presented with the above-mentioned complaint. The patient reported needing help with withdrawal symptoms and wanted to stop. The patient scored 16 on CIWA score and denied any suicidal or homicidal ideation or any psychotic symptom, but guarded and withdrawn. The patient reported drinking a gallon of liquor, the date of last drink being yesterday. The patient reported withdrawal symptoms. The patient reported alcohol usage, was at around 5, according to the intake report, crack cocaine, age of onset 36. Crack cocaine every day in the last 6 months and 1 gallon to 12 beers. Longest period of sobriety 20 years. Last period of sobriety in 2014. The patient denied any history of blackout, HIV, hepatitis, or history of withdrawal symptoms. No history of any IV drug use. The patient reported abdominal cramping, muscle cramping, headache, irritability, poor appetite, sleep problem, and restlessness. Needing inpatient admission at this time for psychiatric stabilization. PAST PSYCHIATRIC HISTORY Remarkable for history of previous treatment, details unknown at this time. No history of any suicide attempt. FAMILY HISTORY AND SOCIAL HISTORY The patient lives alone. Poor support system. No history of abuse. No legal problem. MEDICAL HISTORY Remarkable possible pneumonia and chest infection. ALLERGIES No known drug allergies. SUBSTANCE ABUSE HISTORY Please see above. REVIEW OF SYSTEMS HEENT: Eyes, clear. Ears, nose, mouth, and throat; clear. CARDIOVASCULAR: Unremarkable. Unit #: [id number] #: [id number] Patient: SHARRON HERNANDEZ RESPIRATORY: Unremarkable. GI: Unremarkable. : Unremarkable. SKIN: Unremarkable. LYMPH NODE: Unremarkable. NEUROLOGIC: Unremarkable. ENDOCRINE: Unremarkable. HEMATOLOGIC: Unremarkable. ALLERGIC/IMMUNOLOGIC: Unremarkable. MUSCULOSKELETAL: Muscle strength and tone, no atrophy or abnormal movement. Gait normal. CHEST: The patient is having chest congestion as mentioned above. MENTAL STATUS EXAMINATION VITAL SIGNS: The patient's vital signs; temperature 97.7, heart rate 52, respiratory rate 20, oxygen saturation 100%, and blood pressure 86/54. Height 5 feet 9 inches and weight 155 pounds. GENERAL APPEARANCE: The patient dressed casually. No facial deformity noted. MUSCULOSKELETAL: Please see above. PSYCHIATRIC EXAMINATION Description of speech, slow in volume and rate. Description of thought process, goal directed. Description of association, intact. Description of abnormal psychotic thinking; the patient somewhat guarded and paranoid, but denied any thoughts of harming self or others, but history of substance abuse. Please see above. Description of the patient's judgment: Concerning everyday activity, poor. Social situation, poor. Concerning psychiatric condition, poor. Complete mental status examination; oriented in time, place, and person. Recent and remote memory, fair. Attention span and concentration, fair. Language, able to name object and repeat phrases. Fund of knowledge, aware of current event and passive vocabulary intact. Mood and affect, sad and dysphoric. Insight and judgment, fair to poor. ASSETS AND LIABILITIES Assets, the patient is articulate and able to take care of his ADL. Liability, history of substance abuse. ADMITTING DIAGNOSES Psychiatric: Alcohol use disorder, severe, F10.20; cocaine use disorder, severe, F14.20; and mood disorder, not otherwise specified, F32.9. Secondary diagnosis: Deferred. Medical diagnosis: Rule out pneumonia/chest infection. Stressors: Psychosocial stressors. PSYCHIATRIC PLAN AND TREATMENT GOAL AND DISCHARGE PLAN 1. Advised to admit the patient on the inpatient unit. Provide safe, supportive, and structured environment. 2. Ordered labs; CBC, CMP, UA, and UDS. 3. The patient to start with the detox protocol and detox monitoring. Medical consultation to evaluate the patient's medical condition. The patient to attend group therapy, individual therapy, and chemical dependency group. Treatment goal to attain euthymic mood, gain insight Unit #: [id number] #: [id number] Patient: SHARRON HERNANDEZ into his problem, and learn coping skills. DISCHARGE PLAN Plan to stabilize the patient and consider followup in outpatient program. ESTIMATED LENGTH OF STAY 3 to 5 days. Dictated by... Radha Meléndez/whitney TD: 10/19/2016 19:29 JOB #: [id number] PSYCHIATRIC ASSESSMENT Page 1 of 1 X Wei Mcfadden MD PSYCHIATRIC ASSESSMENT
--- NOTE | ~2016-10-19 | PN ---
Unit #: [id number] #: [id number] Patient: HILL HERNANDEZ [id number] [facility] [address] [place] [address] [id number] I MR#: [id number] NAME: HILL HERNANDEZ ROOM: 71 Age: 56 Sex: M Admission Date: 10/19/2016 : 1960 Attending Physician: Wei Mcfadden M.D. Admitting Physician: Wei Mcfadden M.D. Primary Care Physician: Primary Care Physician Petra ALLEN NOTES DATE OF SERVICE: 10/22/2016 DISCUSSION Hill Hernandez is a 56-year-old male. The patient seclusive, isolative, guarded, flat affect. The patient denied any complaints. The patient vital signs; temperature 97.7, heart rate 76, respiratory rate 21, and blood pressure 102/72. Complete review of systems unremarkable. MENTAL STATUS EXAMINATION General appearance, the patient dressed casually. Attention span and concentration, fair. Oriented in place and person. Mood and affect, labile. Speech, monotone. Thought process, concrete. The patient denied any thoughts of harming self or others, but seclusive, isolative, guarded, flat affect. Recent and remote memory, poor. Insight and judgment, poor. DIAGNOSES 1. Alcohol use disorder, severe, F10.20. 2. Cocaine use disorder, severe. 3. Mood disorder, not otherwise specified. ASSESSMENT AND PLAN Advised to continue with current medication and therapeutic protocol. If needed, consider further adjustment of medication. Dictated by... Radha Meléndez/whitney TD: 10/22/2016 14:48 JOB #: [id number] Unit #: [id number] #: [id number] Patient: HILL HERNANDEZ PEADEBBIE PROGRESS NOTES Page 1 of 1 X Wei Mcfadden MD PROGRESS NOTE
[2016-10-20 09:45] LABS: BASOPHIL% 0.3 % (0-2.5); EOSINOPHIL# 0.3 X10e3 (0-0.7); EOSINOPHIL% 5.8 % (0.0-7.0); HEMOGLOBIN 12.1 gm/dL (13.0-16.0); LYMPHOCYTE# 1.2 X10e3 (1.0-3.5); LYMPHOCYTE% 21.2 % (17.0-45.0); MEAN CELL VOLUME 89.7 FL (83-96); MEAN CORPUSCULAR HEMOGLOBIN 31.1 PG (28-34); MEAN CORPUSCULAR HGB CONC 34.6 g/dL (30-36); MEAN PLATELET VOLUME 8.2 FL (6.5-11.5); MONOCYTE# 0.7 X10e3 (0-1.0); MONOCYTE% 12.5 % (3.0-12.0); NEUTROPHIL# 3.3 X10e3 (1.5-7.1); NEUTROPHIL% 60.2 % (40-75); PLATELET COUNT 240 X10e3 (140-420); RED CELL DISTRIBUTION WIDTH 14.5 % (11.0-15.5); WHITE BLOOD COUNT 5.5 X10e3 (4.0-10.5)
[2016-10-20 09:55] LABS: DIFF IND NO
[2016-10-20 10:08] LABS: ALBUMIN SERUM 2.6 g/dL (3.5-5.0); BILIRUBIN,TOTAL 0.9 mg/dL (0.2-2.0); BUN/CREATININE RATIO 12.72; CALCIUM SERUM 8.2 mg/dL (8.4-10.2); CREATININE SERUM 1.1 mg/dL (0.6-1.4); GLOM FILT RATE Estimated 87.1 mL/min (>60); PROTEIN TOTAL SERUM 5.9 g/dL (6.0-8.3)
[2016-10-21 11:03] LABS: URINE APPEARANCE CLEAR; URINE BILIRUBIN NEG (NEG); URINE BLOOD NEG (NEG); URINE COLOR DK YELLOW; URINE GLUCOSE NEG (NEG); URINE KETONE NEG (NEG); URINE LEUKOCYTE ESTERASE NEG (NEG); URINE NITRATE NEG (NEG); URINE PH 6.5 (5-8); URINE PROTEIN NEG (NEG); URINE SPECIFIC GRAVITY 1.011 (1.003-1.035); URINE UROBILINOGEN 0.2 MG/DL (NEG)
[2016-10-21 11:16] LABS: AMPHETAMINE NEG (NEG); BARBITURATES NEG (NEG); BENZODIAZEPINES POS (NEG); COCAINE NEG (NEG); MARIJUANA NEG (NEG); OPIATES NEG (NEG); TRICYCLIC ANTIDEPRESSANTS NEG (NEG); U METHADONE NEG (NEG)
== END 2016-10-23 06:00 | disposition home or self-care (01) | DRG 896 ==
LOC: P1E 09:51
PROVIDERS: Psychiatry & Neurology Psychiatry
PROC: HZ2ZZZZ Detoxification Services for Substance Abuse Treatment (ICD-10-PCS; principal; 2016-10-19)
DX: F10.20 Alcohol dependence, uncomplicated (principal); J18.9 Pneumonia, unspecified organism; F14.20 Cocaine dependence, uncomplicated; F39 Unspecified mood [affective] disorder
CPT/HCPCS: 80053; 80307; 81003; 85025; 86592

== ENCOUNTER 2016-11-05 09:50 | Inpatient (IN) | payer OTHER ==
[~2016-11-05] VITALS: Ht 170.2 cm; Wt 68.9 kg
--- NOTE | ~2016-11-05 | PN ---
Unit #: [id number] #: [id number] Patient: HILL HERNANDEZ [id number] [facility] [address] [place] [address] [id number] MR#: [id number] NAME: HILL HERNANDEZ ROOM: [facility] Age: 56 Sex: M Admission Date: 11/05/2016 : 1960 Attending Physician: Wei Mcfadden M.D. Admitting Physician: Wei Mcfadden M.D. Primary Care Physician: Primary Care Physician Petra ALLEN NOTES DATE OF SERVICE: 11/07/2016 DISCUSSION Mr. Hill Hernandez is a 56-year-old male, seen on 11/07/2016. The patient interviewed, chart reviewed, and obtained information from nursing staff. The patient reported trouble falling asleep, staying asleep, nasal congestion. Reports current medications are not working. The patient is seclusive, isolative, and guarded. REVIEW OF SYSTEMS Complete review of systems unremarkable. MENTAL STATUS EXAMINATION General appearance, the patient dressed casually. Attention span and concentration, fair. Oriented in time, place, and person. Mood and affect, labile. Speech, monotone. Thought process, concrete. The patient denied any thoughts of harming self or others. Recent and remote memory, poor. Insight and judgment, poor. DIAGNOSES Alcohol use disorder, severe, F10.20 and cocaine use disorder, mild, F14.10. ASSESSMENT AND PLAN Advised to continue with current therapies and treatment on the inpatient unit. Advised to discontinue trazodone and start doxepin 100 mg at bedtime and Benadryl 50 mg at bedtime for allergies. Plan to consider discharge this week with a plan to follow up in outpatient program. Dictated by... Radha Meléndez/whitney TD: 11/07/2016 12:16 JOB #: [id number] Unit #: [id number] #: [id number] Patient: HILL HERNANDEZ JAYLENDEBBIE ALEJANDRO NOTES Page 1 of 1 X Wei Mcfadden MD PROGRESS NOTE
--- NOTE | ~2016-11-05 | HP ---
Unit #: [id number] #: [id number] Patient: SHARRON HERNANDEZ [id number] [facility] [address] [place] [address] [id number] I MR#: [id number] NAME: SHARRON HERNANDEZ ROOM: P211 Age: 56 Sex: M Admission Date: 11/05/2016 : 1960 Attending Physician: Wei Mcfadden M.D. Admitting Physician: Wei Mcfadden M.D. Primary Care Physician: Primary Care Physician No HISTORY AND PHYSICAL NOTE The patient is a 56-year-old male admitted to [address] [place] [address] on 11/05/2016 to detox from alcohol. The patient had a recent admission on 10/19/2016 where a full history and physical was completed. That history and physical has been reviewed. No changes need to be made. Dictated by... Laura Alvarado/bzg TD: 11/07/2016 06:50 JOB #: [id number] HISTORY AND PHYSICAL Page 1 of 1 X JAYDEN LANDRY APRN X HISTORY AND PHYSICAL
--- NOTE | ~2016-11-05 | PN ---
Unit #: [id number] #: [id number] Patient: HILL HERNANDEZ [id number] [facility] [address] [place] [address] [id number] I MR#: [id number] NAME: HILL HERNANDEZ ROOM: [facility] Age: 56 Sex: M Admission Date: 11/05/2016 : 1960 Attending Physician: Wei Mcfadden M.D. Admitting Physician: Wei Mcfadden M.D. Primary Care Physician: Primary Care Physician Petra ALVAREZ PROGRESS NOTES DATE OF SERVICE: 11/06/2016 DISCUSSION Hill Hernandez is a 56-year-old male. The patient interviewed, chart reviewed, and obtained information from nursing staff. The patient requested for larger portion and EnSure. Reported still having anxiety, withdrawn, isolative, and withdrawal symptoms. Vital signs; temperature 98.4, heart rate 87, and blood pressure 120/75. REVIEW OF SYSTEMS Complete review of systems unremarkable. MENTAL STATUS EXAMINATION General appearance, the patient dressed casually. Attention span and concentration, fair. Oriented in time, place, and person. Mood and affect, sad and dysphoric. Speech, monotone. Thought process, concrete. The patient denied any thoughts of harming self or others. Recent and remote memory, poor. Insight and judgment, poor. DIAGNOSES Alcohol use disorder, severe and cocaine use disorder, severe. ASSESSMENT AND PLAN Advised to continue with current medication and therapeutic protocol. The patient scored 8 on CIWA score. If needed, consider further adjustment of medication. Dictated by... Radha Meléndez/whitney TD: 11/07/2016 19:57 JOB #: [id number] Unit #: [id number] #: [id number] Patient: HILL HERNANDEZ PROGRESS NOTES Page 1 of 1 X Wei Mcfadden MD PROGRESS NOTE
--- NOTE | ~2016-11-05 | DS ---
Unit #: [id number] #: [id number] Patient: SHARRON HERNANDEZ [id number] [facility] [address] [place] [address] [id number] I MR#: [id number] NAME: SHARRON HERNANDEZ ROOM: [facility] Age: 56 Sex: M Admission Date: 11/05/2016 : 1960 Discharge Date: 11/09/2016 Attending Physician: Wei Mcfadden M.D. Primary Care Physician: Primary Care Physician No DISCHARGE SUMMARY REASON FOR ADMISSION Detox DIAGNOSTIC STUDIES LABORATORY DATA: Urine drug screen positive for cocaine. HOSPITAL COURSE Patient was admitted to inpatient unit on November 05 and discharged on 11/09/2016. Patient was treated with group therapy, individual therapy, chemical dependency group. Patient showed improvement and was able to be discharged with a plan to followup in outpatient program. DISCHARGE MEDICATIONS 1. Benadryl 50 mg at bedtime for allergies. 2. Doxepin 100 mg at bedtime for sleep. DISCHARGE DIAGNOSES PSYCHIATRIC 1. Alcohol use disorder severe F10.20. 2. Cocaine use disorder severe F14.20. 3. Mood disorder NOS F32.9. SECONDARY DIAGNOSIS Deferred. MEDICAL DIAGNOSIS None. STRESSORS Psychosocial stressor INSTRUCTION TO PATIENT Patient to followup in outpatient clinic as per web content & social media manager. CONDITION AT DISCHARGE Pleasant and cooperative, denied any psychotic symptom or any suicidal ideation. PROGNOSIS Guarded. DIET AND ACTIVITY Unit #: [id number] #: [id number] Patient: SHARRON HERNANDEZ As tolerated. Dictated by... Radha Meléndez/rodrigo TD: 11/10/2016 04:28 JOB #: [id number] DISCHARGE SUMMARY Page 1 of 1 X Wei Mcfadden MD X DISCHARGE SUMMARY
--- NOTE | ~2016-11-05 | PA ---
Unit #: [id number] #: [id number] Patient: SHARRON HERNANDEZ [id number] [facility] [address] [place] [address] [id number] I MR#: [id number] NAME: SHARRON HERNANDEZ ROOM: [facility] Age: 56 Sex: M Admission Date: 11/05/2016 : 1960 Date of Assessment: Attending Physician: Wei Mcfadden M.D. Admitting Physician: Wei Mcfadden M.D. Primary Care Physician: Primary Care Physician No PSYCHIATRIC ASSESSMENT INFORMANTS The patient reliability, fair informant and chart reliability, good. CHIEF COMPLAINT Alcohol abuse and cocaine abuse. HISTORY OF PRESENT ILLNESS Mr. Alejandre is a 56-year-old male, presented with the above-mentioned complaint. The patient reported having problem with alcohol, drinking two-fifth of vodka or bourbon a day and doing 20 dollars worth of cocaine every week. The patient requested for detox because he reported he is tired of this and wanted to stop. The patient denied any suicidal or homicidal ideation. Denied any psychotic symptom. The patient reported having withdrawal symptoms such as muscle cramping, poor appetite, sleep problem, restlessness, diarrhea, tremor, and headache. The patient reported longest period of sobriety 20 years. Last period of sobriety in 2014. Reported tobacco use, age of onset 6; alcohol, age of onset 6; and crack cocaine, age of onset 36. PAST PSYCHIATRIC HISTORY Remarkable for history of previous treatment, last admitted on 10/19/2016. No history of any suicide attempt. FAMILY HISTORY AND SOCIAL HISTORY The patient lives alone, has a poor support system. No history of abuse. No legal problems. MEDICAL HISTORY Unremarkable for any chronic medical illness. Musculoskeletal; muscle strength and tone, no atrophy or abnormal movement. Gait normal. MEDICATION HISTORY None. ALLERGIES No known drug allergies. SUBSTANCE ABUSE HISTORY Please see above. REVIEW OF SYSTEMS HEENT: Eyes, clear. Ears, nose, mouth, and throat; clear. CARDIOVASCULAR: Unremarkable. Unit #: [id number] #: [id number] Patient: SHARRON HERNANDEZ RESPIRATORY: Unremarkable. GI: Unremarkable. : Unremarkable. SKIN: Unremarkable. LYMPH NODE: Unremarkable. NEUROLOGIC: Unremarkable. ENDOCRINE: Unremarkable. HEMATOLOGIC: Unremarkable. ALLERGIC/IMMUNOLOGIC: Unremarkable. MUSCULOSKELETAL: Muscle strength and tone, no atrophy or abnormal movement. Gait normal. MENTAL STATUS EXAMINATION CONSTITUTIONAL: Measurement of vital signs; temperature 98.5, heart rate 87, respiratory rate 18, oxygen saturation 100%, and blood pressure 120/75. Height 5 feet 7 inches and weight 152 pounds. GENERAL APPEARANCE: The patient dressed casually in hospital attire, lying comfortably in bed. No facial deformity noted. MUSCULOSKELETAL: Please see above. PSYCHIATRIC EXAMINATION Description of speech; regular rate, normal volume, normal articulation, and coherent. Description of thought process, goal directed. Description of abnormal psychotic thinking; the patient denied any hallucination or delusions, or any psychotic symptom, but substance abuse and withdrawal symptom. Description of the patient's judgment: Concerning everyday activity, poor. Social situation, poor. Concerning psychiatric condition, poor. Complete mental status examination; oriented in time, place, and person. Recent and remote memory, fair. Attention span and concentration, fair. Language, able to name object and repeat phrases. Fund of knowledge, aware of current event and passive vocabulary intact. Mood and affect, sad and dysphoric. Insight and judgment, fair to poor. ASSETS AND LIABILITIES Assets, the patient is articulate and able to take care of his ADL. Liability, history of substance abuse. ADMITTING DIAGNOSES Psychiatric: Alcohol use disorder, severe, F10.20; cocaine use disorder, severe, F14.20; and mood disorder, not otherwise specified, F32.9. Secondary diagnosis: Deferred. Medical diagnosis: None. Stressors: Psychosocial stressors. PSYCHIATRIC PLAN AND TREATMENT GOAL AND DISCHARGE PLAN 1. Advised to admit the patient on the inpatient unit. Provide safe, supportive, and structured environment. 2. Ordered labs; CBC, CMP, UA, and UDS. 3. Detox protocol and detox monitoring. 4. The patient to attend all the programing, group therapy, individual therapy, and chemical dependency group. Treatment goal to attain euthymic mood, gain insight into his problem, and learn coping skills. Unit #: [id number] #: [id number] Patient: SHARRON HERNANDEZ DISCHARGE PLAN Plan to stabilize the patient and consider followup in outpatient program. ESTIMATED LENGTH OF STAY 3 to 5 days. Dictated by... Wei Mcfadden M.D. MISSY/whitney TD: 11/06/2016 14:19 JOB #: [id number] PSYCHIATRIC ASSESSMENT Page 1 of 1 X Wei Mcfadden MD PSYCHIATRIC ASSESSMENT
--- NOTE | ~2016-11-05 | PN ---
Unit #: [id number]: [id number] Patient: HILL HERNANDEZ [id number] [facility] [address] [place] [address] [id number] MR#: [id number] NAME: HILL HERNANDEZ ROOM: P211 Age: 56 Sex: M Admission Date: 11/05/2016 : 1960 Attending Physician: Wei Mcfadden M.D. Admitting Physician: Wei Mcfadden M.D. Primary Care Physician: Primary Care Physician Petra ALLEN NOTES DATE OF SERVICE 11/08/2016 DISCUSSION Mr. Hill Hernandez is a 56-year-old male. Patient interviewed, chart reviewed. Obtained information from nursing staff. Patient reported that he is still having withdrawal symptoms, anxious, nervous, withdrawn, isolative, guarded. Patient denied any other complaints. Complete review of systems unremarkable. MENTAL STATUS EXAMINATION General appearance, patient dressed casually. Attention span and concentration fair. Oriented to time, place and person. Mood and affect labile. Speech monotone. Thought process concrete. Patient denied any thoughts of harming self or others. Recent and remote memory poor. Insight and judgement poor. DIAGNOSES 1. Alcohol use disorder severe F10.20. 2. Cocaine use disorder mild F14.20. ASSESSMENT/PLAN Advise to continue with current medication and therapeutic protocol with a plan to consider discharge this week and followup at the [facility]. Dictated by... Radha Meléndez/rodrigo TD: 11/08/2016 23:38 JOB #: [id number] Unit #: [id number] #: [id number] Patient: HILL HERNANDEZ JAYLENDEBBIE PROGRESS NOTES Page 1 of 1 X Wei Mcfadden MD PROGRESS NOTE
== END 2016-11-09 13:00 | disposition home or self-care (01) | DRG 897 ==
LOC: P2S 19:09 → POF 11-08 05:26 → P2S 11-08 05:29
PROC: HZ2ZZZZ Detoxification Services for Substance Abuse Treatment (ICD-10-PCS; principal; 2016-11-05)
DX: F10.20 Alcohol dependence, uncomplicated (principal); F14.20 Cocaine dependence, uncomplicated; F39 Unspecified mood [affective] disorder
CPT/HCPCS: 36415; 70450; 71010; 72125; 80048; 80076; 80307; 82553; 84484; 85025; 86592; 93005; 96360; 99285; G0480

== ENCOUNTER 2016-11-05 10:57 | Emergency (ER) | payer OTHER ==
[~2016-11-05] VITALS: Ht 175.3 cm; Wt 74.4 kg
--- NOTE | ~2016-11-05 | CT52 ---
[facility] A Service of [facility] RADIOLOGY TEXT RESULTS PATIENT: SHARRON HERNANDEZ LOCATION: [facility] : 62 UNIT #: [id number] AGE: [address]: Jenifer De Santiago SEX: M ORDER DR: [id number] [place] [id number] [facility]. [place], [place] [address] [id number] E MR#: [id number] Acc #: [id number] NAME: SHARRON HERNANDEZ : 1960 SEX: M STUDY DATE/TIME: 11/05/2016 12:12 UNIT: [facility] ROOM: STUDY DESCRIPTION: CT Cervical Spine Wo Cont Attending Physician: Jenifer De Santiago P.A.-C. Ordering Physician: Jenifer De Santiago P.A.-C. Primary Care Physician: No Primary Care Physician MEDICAL IMAGING REPORT This report is preliminary unless electronic signature is present EXAM CT scan of the cervical spine without contrast, 11/05/2016. HISTORY Posterior neck pain status post fall this morning. FINDINGS Spiral CT was performed through the cervical spine without intrathecal contrast administration as per clinician request. Sagittal and coronal reconstructions were then performed through the cervical spine. This CT exam was performed with one or more of the following radiation dose reduction techniques: automatic exposure control, adjustment of mA and/or kV according to patient size, and iterative reconstruction. FINDINGS The examination is somewhat limited for determination of discogenic disease due to the lack of intrathecal contrast. Sagittal reconstructions demonstrate normal alignment of the cervical spine with a normal lordotic curve. There is degenerative change with moderate disc space narrowing at C3-4, C5-6, and C6-7. Anterior and posterior osteophytes are seen from C3-C6 and there is degenerative change involving the articular facets. There is no CT evidence of cervical spine fracture. Emphysematous changes are seen at the lung apices. IMPRESSION 1. Multilevel degenerative change in the cervical spine. No CT evidence of cervical spine fracture. 2. Emphysematous changes at the lung apices. Dictated by... [facility] A Service of [facility] RADIOLOGY TEXT RESULTS PATIENT: SHARRON HERNANDEZ LOCATION: [facility] : 62 UNIT #: [id number] AGE: [address]: Jenifer De Santiago SEX: M ORDER DR: Sarath Rodriguez M.D. THIS IS AN ELECTRONICALLY VERIFIED REPORT Sarath Rodriguez M.D. at 11/06/2016 6:37 AM RASHAAD/chicho TD: 11/05/2016 16:19 JOB #: [id number] MEDICAL IMAGING REPORT Page 1 of 1 COPY
--- NOTE | ~2016-11-05 | CR71 ---
[facility] A Service of [facility] RADIOLOGY TEXT RESULTS PATIENT: SHARRON HERNANDEZ LOCATION: [facility] : 62 UNIT #: [id number] AGE: [address]: Jenifer De Santiago SEX: M ORDER DR: [id number] [facility] [address] [place], [place] [address] [id number] E MR#: [id number] Acc #: [id number] NAME: SHARRON HERNANDEZ : 1960 SEX: M STUDY DATE/TIME: 11/05/2016 11:52 UNIT: [facility] ROOM: STUDY DESCRIPTION: CR Chest Single View Attending Physician: Jenifer De Santiago P.A.-C. Ordering Physician: Jenifer De Santiago P.A.-C. Primary Care Physician: No Primary Care Physician MEDICAL IMAGING REPORT This report is preliminary unless electronic signature is present EXAM Portable chest, 11/05/2016. HISTORY Shortness of breath and nausea beginning today. Seizures. Smoking history. FINDINGS A single AP portable view of the chest shows both lungs to be clear. The heart is normal in size. The mediastinal contour is normal. No significant bone abnormalities are seen. IMPRESSION Normal portable chest. Dictated by... Sarath Rodriguez M.D. THIS IS AN ELECTRONICALLY VERIFIED REPORT Sarath Rodriguez M.D. at 11/06/2016 6:33 AM RSAHAAD/chicho TD: 11/05/2016 16:13 JOB #: [id number] MEDICAL IMAGING REPORT Page 1 of 1 COPY
--- NOTE | ~2016-11-05 | CT71 ---
[facility] A Service of [facility] RADIOLOGY TEXT RESULTS PATIENT: SHARRON HERNANDEZ LOCATION: [facility] : 62 UNIT #: [id number] AGE: [address]: Jenifer De Santiago SEX: M ORDER DR: [id number] [facility] [address] [place], [place] [address] [id number] E MR#: [id number] Acc #: [id number] NAME: SHARRON HERNANDEZ : 1960 SEX: M STUDY DATE/TIME: 11/05/2016 12:10 UNIT: [facility] ROOM: STUDY DESCRIPTION: CT Head Wo Contrast Attending Physician: Jenifer De Santiago P.A.-C. Ordering Physician: Jenifer De Santiago P.A.-C. Primary Care Physician: Primary Care Physician No MEDICAL IMAGING REPORT This report is preliminary unless electronic signature is present EXAM Head CT without contrast 11/05/2016 HISTORY Seizure and fall this morning with head trauma, pain and swelling frontal region, altered mental status and posterior neck pain. TECHNIQUE Axial noncontrast images were obtained from the skull base to the vertex. This CT exam was performed with one or more of the following radiation dose reduction techniques: automatic exposure control, adjustment of mA and/or kV according to patient size, and iterative reconstruction. FINDINGS Ventricular size and configuration are normal. There is no evidence of acute infarct or hemorrhage. There are no extraaxial fluid collections. No mass lesion or mass effect is seen. There are no skull fractures. IMPRESSION Normal noncontrast head CT. Dictated by... Sarath Rodriguez M.D. THIS IS AN ELECTRONICALLY VERIFIED REPORT Sarath Rodriguez M.D. at 11/06/2016 6:37 AM KRT/to TD: 11/05/2016 16:42 JOB #: [id number] MEDICAL IMAGING REPORT [facility] A Service of [facility] RADIOLOGY TEXT RESULTS PATIENT: SHARRON HERNANDEZ LOCATION: [facility] : 62 UNIT #: [id number] AGE: [address]: Jenifer De Santiago SEX: M ORDER DR: Page 1 of 1 COPY
--- NOTE | ~2016-11-05 | EKG ---
PATIENT: SHARRON HERNANDEZ UNIT #: [id number] Ventricular Rate: 75 BPM Atrial Rate: 75 BPM P-R Interval: 144 ms QRS Duration: 102 ms Q-T Interval: 424 ms QTC Calculation(Bezet): 473 ms P [place]: 58 degrees Calculated R [place]: 24 degrees Calculated T [place]: 42 degrees Diagnosis Line: Normal sinus rhythm Diagnosis Line: Minimal voltage criteria for LVH, may be normal Diagnosis Line: variant Diagnosis Line: Otherwise normal ECG Diagnosis Line: No previous ECGs available Diagnosis Line: Confirmed by MILES AL MD ([id number]) on 11/06/2016 Diagnosis Line: 2:02:32 PM INTERPRETING MD: SERVANDO PORTILLO
[2016-11-05 11:48] LABS: POC - CKMB 2.7 ng/mL (0.0-7.9); POC - TROPONIN <0.05 ng/mL (<=0.05)
[2016-11-05 11:56] LABS: BASOPHIL% 0.9 % (0-2.5); EOSINOPHIL# 0.1 X10e3 (0-0.7); EOSINOPHIL% 1.5 % (0.0-7.0); HEMATOCRIT 37.1 % (38.0-50.0); HEMOGLOBIN 12.5 gm/dL (13.0-16.0); LYMPHOCYTE# 1.9 X10e3 (1.0-3.5); MEAN CELL VOLUME 92.9 FL (83-96); MEAN CORPUSCULAR HEMOGLOBIN 31.4 PG (28-34); MEAN CORPUSCULAR HGB CONC 33.8 g/dL (30-36); MEAN PLATELET VOLUME 6.8 FL (6.5-11.5); MONOCYTE# 0.4 X10e3 (0-1.0); MONOCYTE% 9.6 % (3.0-12.0); PLATELET COUNT 241 X10e3 (140-420); RED BLOOD COUNT 3.99 X10e (3.90-5.60); RED CELL DISTRIBUTION WIDTH 14.9 % (11.0-15.5); WHITE BLOOD COUNT 4.4 X10e3 (4.0-10.5)
[2016-11-05 12:02] LABS: DIFF IND NO
[2016-11-05 12:19] LABS: ALBUMIN SERUM 3.8 g/dL (3.5-5.0); ALCOHOL BLOOD 54 mg/dL (0); ALKALINE PHOSPHATASE 44 U/L (32-92); ALT (SGPT) 21 U/L (10-40); AST (SGOT) 28 U/L (10-42); BILIRUBIN, DIRECT 0.1 mg/dL (0.0-0.2); BILIRUBIN,INDIRECT 0.2 mg/dL (0.0-0.9); BILIRUBIN,TOTAL 0.3 mg/dL (0.2-2.0); BLOOD UREA NITROGEN 12 mg/dL (9-23); CARBON DIOXIDE 23 mmol/L (22-31); CHLORIDE 107 mmol/L (100-111); CREATININE SERUM 0.8 mg/dL (0.6-1.4); GLOM FILT RATE Estimated 116.6 mL/min (>60); GLUCOSE FASTING 68 mg/dL (70-110); POTASSIUM 3.1 mmol/L (3.5-5.1); PROTEIN TOTAL SERUM 6.9 g/dL (6.0-8.3); SALICYLATE <4.0 mg/dL; SODIUM 139 mmol/L (135-145)
[2016-11-05 12:20] LABS: ACETAMINOPHEN <10 ug/mL
[2016-11-05 13:16] LABS: AMPHETAMINE NEG (NEG); BARBITURATES NEG (NEG); BENZODIAZEPINES NEG (NEG); COCAINE POS (NEG); MARIJUANA NEG (NEG); OPIATES NEG (NEG); TRICYCLIC ANTIDEPRESSANTS NEG (NEG); U METHADONE NEG (NEG)
== END 2016-11-05 18:50 | disposition home or self-care (01) ==
LOC: CED 10:57
PROVIDERS: Physician Assistant
DX: F10.129 Alcohol abuse with intoxication, unspecified (principal); F17.210 Nicotine dependence, cigarettes, uncomplicated
CPT/HCPCS: 36415; 70450; 71010; 72125; 80048; 80076; 80307; 82553; 84484; 85025; 93005; 96360; 99285; G0480